=== PATIENT | male | born 1975 | race Two or more races ===

== ENCOUNTER 2018-11-15 14:59 | Emergency (ER) | payer OTHER ==
[~2018-11-15] VITALS: Ht 182.9 cm; Wt 102.1 kg
[2018-11-15 15:29] VITALS: BP 133/69
--- NOTE | 2018-11-15 17:31 | PHYS DOC ---
Past Medical History Past Medical History: No Pertinent History Alcohol Use: None Drug Use: None Adult General Chief Complaint Chief Complaint: SHOULDER INJURY HPI HPI Patient is a 43 year old white male who presents to the emergency room with complaints of left proximal humerus pain that has been severe with movement for the last 2 days. He denies any known injury. He states that he lifts heavy boxes at work daily. Patient denies any numbness, tingling, or weakness of the affected extremity. He rates the pain is 0 out of 10 at this time. However, if patient moves his arm the pain shoots to a 9 out of 10 on the pain scale. Review of Systems Review of Systems Constitutional: Denies fever or chills [] Eyes: Denies any changes Musculoskeletal: History of present illness Integument: Denies rash or skin lesions [] Neurologic: Denies focal weakness or sensory changes [] Physical Exam Physical Exam Constitutional: Well developed, well nourished, no acute distress, non-toxic appearance. [] HENT: Normocephalic, atraumatic, bilateral external ears normal, nose normal. [] Eyes: conjunctiva normal, no discharge. [] Neck: Normal range of motion, no stridor. [] Lungs & Thorax: respirations regular, no retractions Skin: Warm, dry, no erythema, no rash. [] Extremities: left proximal humerus TTP, no deformity or crepitus, full ROM; no cyanosis, no clubbing, no edema. [] Neurologic: Alert and oriented X 3, normal motor function, normal sensory function, no focal deficits noted. [] Psychologic: Affect normal, judgement normal, mood normal. [] Current Patient Data Vital Signs Vital Signs Date Time Temp Pulse Resp B/P (MAP) Pulse Ox O2 Delivery O2 Flow Rate FiO2 11/15/18 15:29 99.5 69 18 133/69 (90) 99 Room Air 99.5 EKG EKG [] Radiology/Procedures Radiology/Procedures PROCEDURE: HUMERUS LEFT Two-view left humerus dated 11/15/2018. No comparison available. Clinical data indication: Pain for months. FINDINGS: 2 views left humerus show normal bony alignment. No displaced fracture. Small vague sclerotic focus at the proximal humeral diaphysis without evidence of endosteal scalloping or bone destruction. IMPRESSION: 1. No acute radiographic abnormality. 2. Small irregular sclerotic focus at the proximal humeral diaphysis, nonspecific but possibly related to a small enchondroma. Follow-up imaging may be warranted to ensure stability. [] Course & Med Decision Making Course & Med Decision Making Pertinent Labs and Imaging studies reviewed. (See chart for details) [] Dragon Disclaimer Dragon Disclaimer This electronic medical record was generated, in whole or in part, using a voice recognition dictation system. Departure Departure Impression: Primary Impression: Pain of left humerus Disposition: 01 HOME, SELF-CARE Condition: STABLE Referrals: UNKNOWN PCP NAME (PCP) Patient Instructions: Shoulder Pain, [id number] Additional Instructions: Activity as tolerated, tylenol or ibuprofen as needed for pain. Your x-ray did not show an acute fracture or dislocation today, however, there was a nonspecific change that may indicate a small enchondroma. Follow up with your primary care doctor for further evaluation and treatment of ongoing pain in your left upper arm. FELICITY LOPEZ APRN Nov 15, 2018 17:31
--- NOTE | 2018-11-15 17:48 | RAD ---
Two-view left humerus dated 11/15/2018. No comparison available. Clinical data indication: Pain for months. FINDINGS: 2 views left humerus show normal bony alignment. No displaced fracture. Small vague sclerotic focus at the proximal humeral diaphysis without evidence of endosteal scalloping or bone destruction. IMPRESSION: 1. No acute radiographic abnormality. 2. Small irregular sclerotic focus at the proximal humeral diaphysis, nonspecific but possibly related to a small enchondroma. Follow-up imaging may be warranted to ensure stability. Electronically signed by: Logan Khanna MD (11/15/2018 5:46 PM) [id number]
== END 2018-11-15 18:42 | disposition home or self-care (01) ==
LOC: ER 14:59
DX: M79.622 Pain in left upper arm (principal)
CPT/HCPCS: 73060; 99283